=== PATIENT | male | born 1935 | race Caucasian/White ===

== ENCOUNTER 2016-05-12 12:17 | Inpatient (IN) | payer MEDICARE, OTHER ==
[~2016-05-12] VITALS: Ht 175.3 cm; Wt 98.0 kg
[~2016-05-12 12:17] MED LIST changes: -HYDR-3583 PO
--- NOTE | 2016-05-14 17:32 | MH ---
cc: YOLA PUGA M.D., ROHIT K. M.D. VICENTA MONTEJO DATE OF ADMISSION 05/15/2016 ADMISSION DIAGNOSIS Lumbar degenerative disk disease. HISTORY OF PRESENT ILLNESS This is an 80-year-old male who presented to us for evaluation of low back pain that has progressively gotten worse. He states he has had pain radiating into left buttocks, groin, hip and proximal lateral thigh for the last year. He occasionally notices symptoms in the right buttocks and hip area. He was referred to pain management and had an epidural steroid injection the lasted a short term. He denies any paresthesias in his left leg. He states his left leg can buckle. He denies any bowel or bladder incontinence. He has had a previous lumbar laminectomy in 1992 and states he did good after surgery. He has had additional physical therapy more recently and also went back to pain management and had two more injections which did not help as much as his previous injections. He states his pain has affected his walking and he is not able to do things he wants to do. He has tried to go on vacation and was miserable with his level of pain. He states he has pain radiating to the left anterior thigh and into the medial and posterior calf. He has a burning pain in the right anterior thigh. No paresthesias in lower extremities. He denies any bowel or bladder incontinence. PAST MEDICAL HISTORY Significant for: Hypertension. MEDICATIONS 1. Carvedilol 25 mg b.i.d. 2. Lisinopril 30 mg b.i.d. 3. Lortab 7.5/325 q.6 h p.r.n. 4. Aspirin 81 mg daily. ALLERGIES NO KNOWN DRUG ALLERGIES. FAMILY HISTORY His mother is , had cervical cancer. His father is , had Parkinson's disease. SOCIAL HISTORY He is an educator. He is . He has two children. He quit smoking in 1974. At the time he was smoking two packs a day for 20 years. He drinks 0-2 drinks per day. REVIEW OF SYSTEMS CONSTITUTIONAL: He denies any fever or chills. EARS, NOSE, AND THROAT: No pharyngitis, exudate or bloody drainage from his nose. CARDIOVASCULAR: He denies any chest pain, palpitations. RESPIRATORY: No cough or shortness of breath. GENITOURINARY: No dysuria or hematuria. MUSCULOSKELETAL: Positive for low back pain. INTEGUMENT: No rashes or pruritus. NEUROLOGICAL: No difficulty with speech or memory. GASTROINTESTINAL: No nausea, vomiting or abdominal pain. PSYCHIATRIC: No anxiety or depression symptoms. ENDOCRINE; No polyuria or polydipsia. HEMATOLOGIC: No bruising or bleeding tendencies. PHYSICAL EXAMINATION HEAD: Normocephalic, atraumatic. NECK: Supple. No carotid bruits heard on auscultation. LUNGS: Clear to auscultation bilaterally. HEART: Regular rate and rhythm. Normal S1-S2. ABDOMEN: Soft and nontender. Positive bowel sounds. SKIN: Reveals no cyanosis or erythema. MUSCULOSKELETAL: He has 5/5 strength in the lower extremities. He ambulates without any assistive device. NEUROLOGICAL: Awake and alert, oriented. Cranial nerves II through XII appear grossly intact. Speech is fluent. Comprehension is good. Sensation is intact in the lower extremities. His reflexes are very diminished in the lower extremities. IMAGING Reviewed an MRI of the lumbar spine from May 06, 2016 which revealed severe L4-L5 degenerative disc disease with disc height collapse and end plate changes along with left-sided foraminal stenosis and disc protrusion and facet arthropathy in the right hemilaminotomy defect. There is also significant L3-L4 spinal stenosis from facet hypertrophy along with right lateral disc protrusion. IMPRESSION An 80-year-old male with a chronic history of low back pain which has progressively gotten worse along with complaints of left L5 and right L3 radiculopathy. 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 He has failed conservative measures and relates that he is very limited in his activity status with pain, it limits his ability to walk and overall poor quality of life. PLAN We have discussed treatment options with the patient. He has failed conservative measures and he is currently miserable with his level discomfort and he is requesting we proceed with surgical intervention. We have recommended an L3-L4 decompressive laminotomy with foraminotomy and left L4-L5 transforaminal interbody fusion. The procedure as well as the risks, benefits, alternatives and recovery time were explained in great detail with the patient. We have discussed the risks involved with surgery include but not limited to bleeding, infection, muscle weakness, voice hoarseness, difficulty swallowing, heart attack, stroke, blood clots, non fusion, scar tissue formation among others. The patient states that he understands the procedure as well as the risks involved and he was therefore scheduled accordingly. DICTATED BY: Raul Corbin PA-C MD DOMINIK Delgado/GEOVANI /4:53 PM /5:11 PM
[2016-05-15 06:58] VITALS: BP 135/69; PULSE 70; RESP 20; TEMP 98.1; O2SAT 95
[2016-05-15] MEDS ORDERED: VANCOMYCIN 1,000 MG/NS 250ML (for <70 kg) IV SCH ×2 (07:00)
[2016-05-15] MEDS ORDERED: INSULIN HUMAN REGULAR 1,000 UNITS/10 ML VIAL SQ PRN (07:00)
[2016-05-15] MEDS ORDERED: METOPROLOL TARTRATE 25 MG TAB PO PRN (07:00)
[2016-05-15] MEDS: SODIUM CHLOR 0.9% 1000 ML INJ 1,000 ML IV SCH (07:00)
[2016-05-15] MEDS: LACTATED RINGER'S 1000 ML IV SCH (07:15)
[2016-05-15] MEDS ORDERED: THROMBIN (TOPICAL) 5,000 UNIT VIAL ONE (07:32)
[2016-05-15] MEDS ORDERED: VANCOMYCIN HCL 1000 MG VIAL ONE (07:32)
[2016-05-15] MEDS ORDERED: GELFOAM SIZE 100 ONE (07:32)
[2016-05-15] MEDS: SODIUM CHLORID 0.9% 500 ML IV SCH (08:00)
[2016-05-15] MEDS ORDERED: MIDAZOLAM HCL 2 MG/2 ML VIAL ONE (08:13)
[2016-05-15] MEDS ORDERED: DEXAMETHASONE SOD PHOS 4 MG/ML VIAL ONE (08:13)
[2016-05-15] MEDS ORDERED: FAMOTIDINE 20 MG/2 ML VIAL ONE (08:13)
[2016-05-15] MEDS ORDERED: ARTIFICIAL TEARS OPTH OINT 3.5 APPLIC/3.5 GM TUBO ONE (08:16)
[2016-05-15] MEDS: BUPIVACAINE/EPINEPHRINE 0.5% PF 30 ML VIAL ONE ×2 (09:20→12:53)
[2016-05-15] MEDS ORDERED: VANCOMYCIN HCL 1000 MG VIAL OTHER ONE ×2 (09:30→12:54)
[2016-05-15] MEDS ORDERED: ACETAMINOPHEN 1000 MG/100 ML VIAL IV ONE (11:50)
[2016-05-15] MEDS ORDERED: ONDANSETRON HCL 4 MG/2 ML VIAL IV PUSH ONE (12:00)
[2016-05-15] MEDS ORDERED: LACTATED RINGER'S 1000 ML INJ 1,000 ML IV ONE (12:00)
[2016-05-15] MEDS ORDERED: PROPOFOL 200 MG/20 ML AMP IV ONE (12:00)
[2016-05-15] MEDS ORDERED: PHENYLEPH/NS 1000 MCG/10 ML SYR IV ONE (12:00)
[2016-05-15] MEDS ORDERED: NORMOSOL R INJ 2,000 ML IV ONE (12:00)
[2016-05-15] MEDS ORDERED: THROMBIN (TOPICAL) 5,000 UNIT VIAL TOPICAL ONE (12:20)
--- NOTE | 2016-05-15 13:26 | PD.OP ---
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 endotracheal by Renan Riley Surgeon: Adal Méndez M.D. Handstitching Machine Armhole Feller(s): Asiya Leary Operation and Findings: Following initiation of general endotracheal anesthesia, the patient had a Dixon catheter placed along with sequential compression devices. A gram of vancomycin was administered intravenously and he was turned in a prone position on a Flo frame, on a Alfie table, and all pressure points adequately padded. The lumbosacral region was then prepped with Chloraprep and sterilely draped with Ioban along the usual sterile draping. A midline skin incision at the previous incision site was then made extending from the L4-L5 level after infiltrating the skin with 0.5% Marcaine with epinephrine solution extending down through the fascia. The muscle fibers were split using avascular fatty plane and detached from the underlying facets, transverse process and lateral portion of lamina on the left side and a self-retaining retractor used for exposure. Intraoperative fluoroscopy was also used for level of confirmation along with microscope magnification for further dissection. There was significant facet and ligamentum flavum hypertrophy noted at the L3-4 and L4-5 levels. Left L4-5 facet was resected with a drill bit along with the lamina and there was severe foraminal and lateral recess stenosis from hypertrophied ligamentum flavum and facet which were decompressed bilaterally through the usual lateral approach. There was significant L3-4 spinal stenosis noted also and a left L3-4 hemilaminotomy and medial facetectomy also undertaken with resection of the hypertrophied ligamentum flavum bilaterally through the left side gentle thecal sac retraction. There was significant disc height collapse noted at the L4-5 level along with disc protrusion also leading to the foraminal stenosis. Epidural hemostasis was achieved with bipolar cautery and Gelfoam with thrombin. Subsequently entered into the disc space at the L4-5 level with a #15 blade and sara were used for discectomy. I then placed PEEK cage packed with local autograft bone and more local autograft bone was packed adjacent to the cage in interspace for added interbody fusion. With placement of the cage, I was able to distract the interspace and opened up the foramen further bilaterally. Subsequently in order to facilitate the fusion and provide stabilization, pedicle screw fixation was undertaken using Weston spine screws on entry point at the left L4-5 levels at the junction of the transverse process and facet. Subsequently using AP and lateral fluoroscopy tap and screw placement. The screws were then connected with a manisha and locked in place with caps. The construct appeared very secure at this point. The area was then copiously irrigated with Vancomycin solution and powder. The retractors were removed and the bipolar cautery used for hemostasis. The muscle fascia was then approximated using 2-0 Vicryl interrupted stitches and then 3-0 Vicryl subcuticular stitches also placed in interrupted fashion. The final skin closure was completed with Mastisol and Steri-Strips. A sterile dressing was then applied. The patient then turned in supine position, extubated and taken to recovery room. There were no intraoperative complications. All sponge and needle counts were correct at the end of procedure. Estimated blood loss about 200 ml. Adal Méndez MD May 15, 2016 13:26
[2016-05-15] MEDS ORDERED: ACETAMINOPHEN 325 MG TAB PO PRN (13:30)
[2016-05-15] MEDS ORDERED: ALUMINUM/MAGNESIUM/SIMETH 30 ML CUP PO PRN (13:30)
[2016-05-15] MEDS ORDERED: MENTHOL LOZENGE SUCK-ON PRN (13:30)
[2016-05-15] MEDS ORDERED: ZOLPIDEM TARTRATE 5 MG TAB PO PRN (13:30)
[2016-05-15] MEDS ORDERED: CYCLOBENZAPRINE HCL 10 MG TAB PO PRN (13:30)
[2016-05-15] MEDS ORDERED: MAGNESIUM SULFATE INJ 2 GM in SODIUM CHLORIDE 0.9% INJ 100 ML IV PRN (13:30)
[2016-05-15] MEDS ORDERED: SODIUM CHLORIDE 0.9% FLUSH 5 ML FLUSH IVF PRN (13:30)
[2016-05-15] MEDS ORDERED: ACETAMINOPHEN/HYDROcodone 325 MG/10 MG TAB PO PRN (13:30)
[2016-05-15] MEDS ORDERED: RESP: ALBUTEROL 2.5 MG/3 ML NEB (PRN) NEB (13:30)
[2016-05-15] MEDS ORDERED: ONDANSETRON HCL 4 MG/2 ML VIAL IV PRN (13:30)
[2016-05-15] MEDS ORDERED: BISACODYL 10 MG SUPP PR PRN (13:30)
[2016-05-15] MEDS ORDERED: PROMETHAZINE INJ 25 MG/ML VIAL IM PRN (13:30)
[2016-05-15] MEDS ORDERED: POTASSIUM CHLOR 20 MEQ PREMIX 100 ML IV PRN (13:30)
[2016-05-15] MEDS ORDERED: MORPHINE SULFATE 4 MG/ML INJ ONE (13:49)
[2016-05-15] MEDS ORDERED: fentaNYL CITRATE 250 MCG/5 ML AMP ONE (13:50)
[2016-05-15 13:58] LABS: AUTOMATED NEUTROPHIL # 7.5 TH/MM3 (1.8-7.7); BASOPHIL % 0.2 % (0.0-2.0); EOSINOPHIL % 0.2 % (0.0-4.0); HEMATOCRIT 37.5 % (39.0-51.0); HEMO FLAGS DIFF FINAL; LYMPH % 4.7 % (9.0-44.0); LYMPHOCYTE # 0.4 TH/MM3 (1.0-4.8); MEAN CELL VOLUME 90.7 FL (80.0-100.0); MEAN CORPUSCULAR HEMOGLOBIN 32.4 PG (27.0-34.0); MEAN CORPUSCULAR HGB CONC 35.7 % (32.0-36.0); MONO % 1.7 % (0.0-8.0); NEUT % 93.2 % (16.0-70.0); PLATELET COUNT 170 TH/MM3 (150-450); RED BLOOD COUNT 4.14 MIL/MM3 (4.50-5.90); RED CELL DISTRIBUTION WIDTH 15.3 % (11.6-17.2); WHITE BLOOD COUNT 8.1 TH/MM3 (4.0-11.0)
[2016-05-15] MEDS: NS + KCL 20 MEQ INJ 1,000 ML IV SCH ×2 (14:10→23:21)
[2016-05-15 14:26] LABS: BICARBONATE 29.9 MEQ/L (21.0-32.0); MAGNESIUM 2.2 MG/DL (1.5-2.5); POTASSIUM 4.3 MEQ/L (3.5-5.1)
[2016-05-15 14:55] LABS: CALCIUM-PROTEIN CORRECTED 8.4 MG/DL (8.5-10.1)
[2016-05-15] MEDS: CALCIUM GLUCONATE INJ 1 GM in SODIUM CHLORIDE 0.9% INJ 100 ML IV PRN (15:22)
--- NOTE | 2016-05-15 16:09 | RADRPT ---
EXAM DATE/TIME: 05/15/2016 08:36 [facility] COMPARISON: No previous studies available for comparison. INDICATIONS : Lumbar spine L3-5 laminectomy L4-5 interbody cage with pedicle screw fixation. OR. MEDICAL HISTORY : None. SURGICAL HISTORY : None. ENCOUNTER: Initial ACUITY: 1 day PAIN SCORE: Non-responsive. LOCATION: Lumbar L4-5 FINDINGS: 2 images are recorded digitally in the operating room using C-arm during placement of unilateral dave spedicular screws at the 2 lowest levels in the lumbar region. Intervertebral disc metallic markers are also present. CONCLUSION: Intraoperative images. Christopher Andres MD on May 15, 2016 at 16:07 Board Certified Radiologist. This report was verified electronically.
[2016-05-15 17:00] VITALS: BP 173/74; PULSE 67; RESP 17; TEMP 95.4; O2SAT 90
[2016-05-15] MEDS: cloNIDine HCL 0.1 MG TAB PO PRN (17:23)
[2016-05-15 20:00] VITALS: BP 144/90; PULSE 84; RESP 20; TEMP 96.3; O2SAT 94
[2016-05-15] MEDS: CARVEDILOL 12.5 MG TAB PO SCH (21:43)
[2016-05-15] MEDS: DOCUSATE SODIUM 100 MG CAP PO SCH (21:43)
[2016-05-15] MEDS: LISINOPRIL 10 MG TAB PO SCH (21:43)
[2016-05-15] MEDS: SODIUM CHLORIDE 0.9% FLUSH 5 ML FLUSH IVF SCH (21:44)
[2016-05-16] VITALS (8 sets, daily range): BP systolic 138–161; BP diastolic 65–77; PULSE 61–82; RESP 16–20; TEMP 95.8–97; O2SAT 94–98
[2016-05-16] MEDS: SODIUM CHLORID 0.9% 500 ML IV SCH (00:40)
[2016-05-16] MEDS: SODIUM CHLOR 0.9% 1000 ML INJ 1,000 ML IV SCH (07:00)
[2016-05-16] MEDS: LACTATED RINGER'S 1000 ML IV SCH (08:00)
[2016-05-16] MEDS: DOCUSATE SODIUM 100 MG CAP PO SCH ×2 (08:52→21:53)
[2016-05-16] MEDS: CARVEDILOL 12.5 MG TAB PO SCH ×2 (08:52→21:53)
[2016-05-16] MEDS: ASPIRIN EC 81 MG TABEC PO SCH (08:52)
[2016-05-16] MEDS: PANTOPRAZOLE SOD 40 MG DELAYED RELEASE TAB PO SCH (08:52)
[2016-05-16] MEDS: LISINOPRIL 10 MG TAB PO SCH ×2 (08:52→21:54)
[2016-05-16] MEDS: ACETAMINOPHEN/HYDROcodone 325 MG/10 MG TAB PO PRN (08:52)
[2016-05-16] MEDS: NS + KCL 20 MEQ INJ 1,000 ML IV SCH ×2 (08:53→19:21)
[2016-05-16] MEDS: SODIUM CHLORIDE 0.9% FLUSH 5 ML FLUSH IVF SCH ×2 (08:59→21:54)
[2016-05-16] MEDS: CALCIUM GLUCONATE INJ 1 GM in SODIUM CHLORIDE 0.9% INJ 100 ML IV PRN (09:04)
[2016-05-16] MEDS ORDERED: PNEUMOCOCCAL POLYVALENT INJ 25 MCG/0.5 ML SYR IM ONE (10:00)
--- NOTE | 2016-05-16 10:08 | HHI.NSPN ---
(Raul Corbin) History Chief Complaint: Incisional pain controlled. (Raul Corbin) Interval History 05/16/16: Pt underwent a L3-L5 decompressive laminectomy with L4/L5 TLIF with cage and pedicle screw fixation on 05/15/16. He states his pain is currently controlled. No radiculopathy or paresthesias in LEs. He moves LEs well. ( Raul Corbin) Review of Systems General: Negative for: fever, chills, insomnia Respiratory: Negative for: shortness of breath, cough, sputum Cardiovascular: Negative for: chest pain Gastrointestinal: Negative for: nausea, vomitting, diarrhea, constipation ( Raul Corbin) Exam Results Vital Signs Date Time Temp Pulse Resp B/P Pulse Ox O2 Delivery O2 Flow Rate FiO2 05/16/16 08:00 97.0 74 19 157/74 96 05/15/16 15:00 Nasal Cannula 2 Intake and Output 05/15/16 05/15/16 05/16/16 08:00 16:00 00:00 Intake Total 3075 ml 1245 ml Output Total 1200 ml 775 ml Balance 1875 ml 470 ml (Raul Corbin) Physical Examination Resp: CTA bilaterally Heart: NSR no murmurs Abd: Soft positive bs Skin: Bandage changed this morning by RN reportedly clean and dry new bandage applied. Muscle: Moves LEs with good strength. Sitting up in chair Neuro: Pt awake and alert. Follows commands well. Speech clear and appropriate. (Raul Corbin) Lab, Micro, Other Results Laboratory Tests Test 05/15/16 13:53 White Blood Count 8.1 TH/MM3 Red Blood Count 4.14 MIL/MM3 Hemoglobin 13.4 GM/DL Hematocrit 37.5 % Mean Corpuscular Volume 90.7 FL Mean Corpuscular Hemoglobin 32.4 PG Mean Corpuscular Hemoglobin 35.7 % Concent Red Cell Distribution Width 15.3 % Platelet Count 170 TH/MM3 Mean Platelet Volume 7.9 FL Neutrophils (%) (Auto) 93.2 % Lymphocytes (%) (Auto) 4.7 % Monocytes (%) (Auto) 1.7 % Eosinophils (%) (Auto) 0.2 % Basophils (%) (Auto) 0.2 % Neutrophils # (Auto) 7.5 TH/MM3 Lymphocytes # (Auto) 0.4 TH/MM3 Monocytes # (Auto) 0.1 TH/MM3 Eosinophils # (Auto) 0.0 TH/MM3 Basophils # (Auto) 0.0 TH/MM3 CBC Comment DIFF FINAL Differential Comment Sodium Level 137 MEQ/L Potassium Level 4.3 MEQ/L Chloride Level 101 MEQ/L Carbon Dioxide Level 29.9 MEQ/L Anion Gap 6 MEQ/L Blood Urea Nitrogen 17 MG/DL Creatinine 0.90 MG/DL Estimat Glomerular Filtration 81 ML/MIN Rate Random Glucose 157 MG/DL Calcium Level 8.1 MG/DL Protein Corrected Calcium 8.4 MG/DL Magnesium Level 2.2 MG/DL Total Protein 6.7 GM/DL 05/15/16 05/15/16 05/16/16 15:00 23:00 07:00 Intake Total 3075 ml 1245 ml 720 ml Output Total 1200 ml 775 ml 1100 ml Balance 1875 ml 470 ml -380 ml Intake Oral 480 ml 720 ml IV Total 75 ml 765 ml Other 3000 ml Output Urine Total 1000 ml 775 ml 1100 ml Estimated Blood Loss 200 ml # Bowel Movements 0 0 (Raul Corbin) Medical Decision Making Impression and Plan A: 80 y/o M s/p L3-L5 decompressive laminectomy with L4/L5 TLIF and pedicle screw fixation. P: Continue with pain control Continue with PT Possible D/C tomorrow day 2 post op. (Raul Corbin) Attending Statement The exam, history, and the medical decision-making described in the above note were completed with the assistance of the mid-level provider. I reviewed and agree with the findings presented. I attest that I had a [id number] encounter with the patient on the same day, and personally performed and documented my assessment and findings in the medical record. (Adal Méndez MD) Raul Corbin May 16, 2016 10:08 Adal Méndez MD May 16, 2016 15:31
[2016-05-16] MEDS ORDERED: HYDR-3583 PO (10:13)
[2016-05-16] MEDS: MAGNESIUM HYDROXIDE SUSP 30 ML CUP PO PRN (15:24)
[2016-05-17] VITALS: BP 163/76; PULSE 68; RESP 20; TEMP 96.7; O2SAT 95
[2016-05-17] MEDS: NS + KCL 20 MEQ INJ 1,000 ML IV SCH ×2 (05:21→15:21)
[2016-05-17] MEDS: SODIUM CHLOR 0.9% 1000 ML INJ 1,000 ML IV SCH (07:00)
[2016-05-17 08:00] VITALS: BP 162/69; PULSE 68; RESP 17; TEMP 96.7; O2SAT 96
[2016-05-17] MEDS: LACTATED RINGER'S 1000 ML IV SCH (08:00)
[2016-05-17] MEDS: LISINOPRIL 10 MG TAB PO SCH (09:40)
[2016-05-17] MEDS: DOCUSATE SODIUM 100 MG CAP PO SCH (09:40)
[2016-05-17] MEDS: CARVEDILOL 12.5 MG TAB PO SCH (09:40)
[2016-05-17] MEDS: PANTOPRAZOLE SOD 40 MG DELAYED RELEASE TAB PO SCH (09:41)
[2016-05-17] MEDS: SODIUM CHLORIDE 0.9% FLUSH 5 ML FLUSH IVF SCH (09:41)
[2016-05-17] MEDS: ASPIRIN EC 81 MG TABEC PO SCH (09:41)
[2016-05-17] MEDS: MAGNESIUM HYDROXIDE SUSP 30 ML CUP PO PRN (09:45)
--- NOTE | 2016-05-17 11:33 | HHI.DCPOC ---
Discharge Care Plan Diagnosis: (1) Status post lumbar spinal fusion Goals to Promote Your Health * To prevent worsening of your condition and complications * To maintain your health at the optimal level Directions to Meet Your Goals Take your medications as prescribed Follow your dietary instruction Follow activity as directed Keep your appointments as scheduled Take your immunizations and boosters as scheduled If your symptoms worsen call your PCP, if no PCP go to Urgent Care Center or Emergency Room Smoking is Dangerous to Your Health. Avoid second hand smoke Call the 24-hour hour crisis hotline for domestic abuse at Danette Gaines May 17, 2016 11:33
--- NOTE | 2016-05-17 11:39 | HHI.NSPN ---
(Danette Gaines) Note Status Status: Progress Note (Danette Gaines) Interval History Interval History Mr. Calderon is a 80 y/o male who underwent a L3-L5 decompressive laminectomy with L4/L5 TLIF with cage and pedicle screw fixation on 05/15/[address] Méndez. 05/17: He is doing very well today, he reports very minimal pain, he denies focal weakness, paresthesias in his legs. He would like to go home. (Danette Gaines) Labs, Micro, & Vital Signs Results Date Time Temp Pulse Resp B/P Pulse Ox O2 Delivery O2 Flow Rate FiO2 05/17/16 08:00 96.7 68 17 162/69 96 05/17/16 00:00 96.7 68 20 163/76 95 05/16/16 20:00 96.9 74 16 151/77 96 05/16/16 18:26 97 21 05/16/16 16:00 96.3 70 16 161/69 97 05/16/16 12:00 95.8 61 16 138/67 98 05/17/16 07:00 Intake Total 1080 ml Output Total 350 ml Balance 730 ml Constitutional Vital Signs Date Time Temp Pulse Resp B/P Pulse Ox O2 Delivery O2 Flow Rate FiO2 05/17/16 08:00 96.7 68 17 162/69 96 05/17/16 00:00 96.7 68 20 163/76 95 05/16/16 20:00 96.9 74 16 151/77 96 05/16/16 18:26 97 21 05/16/16 16:00 96.3 70 16 161/69 97 05/16/16 12:00 95.8 61 16 138/67 98 05/17/16 07:00 Intake Total 1080 ml Output Total 350 ml Balance 730 ml (Danette Gaines) Review of Systems/Exam Exam Mr. Calderon is alert, speech is appropriate. Wound is clean with dry dressing in place. Cranial nerve examination: pupils equal, round and reactive to light. Extra- ocular movements are intact. Facial motor are normal and symmetrical. Neck: soft, supple Motor: moves 5/5 both iliopsoas, quads, hamstrings, plantarflexion, dorsiflexion , EHL Respiratory: clear, nonlabored (Danette Gaines) Medications Current Medications Current Medications Medications (Trade) Dose Ordered Sig/Leslie Route PRN Reason Start Time Stop Time Status Last Admin Dose Admin Lactated Ringer's 1,000 ml @ 30 mls/hr Q24H IV 05/15/16 08:00 05/15/16 07:15 Sodium Chloride (NS 1000 ml Inj) 1,000 ml @ 30 mls/hr Q24H IV 05/15/16 07:00 Aspirin (Ecotrin Ec) 81 mg DAILY PO 05/16/16 09:00 05/17/16 09:41 Carvedilol (Coreg) 12.5 mg BID PO 05/15/16 21:00 05/17/16 09:40 Lisinopril 30 mg 30 mg BID PO 05/15/16 21:00 05/17/16 09:40 Potassium Chloride/Sodium Chloride (NS + KCl 20 Meq Inj) 1,000 ml @ 100 mls/hr Q10H IV 05/15/16 13:21 05/16/16 08:53 IV Flush (NS Flush) 2 ml UNSCH PRN IVF FLUSH AFTER USING IV ACCESS 05/15/16 13:30 IV Flush (NS Flush) 2 ml BID IVF 05/15/16 21:00 05/17/16 09:41 Bisacodyl (Dulcolax Supp) 10 mg DAILY PRN [place] CONSTIPATION 05/15/16 13:30 Docusate Sodium (Colace) 100 mg BID PO 05/15/16 21:00 05/17/16 09:40 Magnesium Hydroxide (Milk Of Magnesia Liq) 30 ml DAILY PRN PO CONSTIPATION 05/15/16 13:30 05/17/16 09:45 Al Hydrox/Mg Hydrox/Simethicone (Mag-Al Plus Susp Liq) 30 ml Q6H PRN PO DYSPEPSIA 05/15/16 13:30 Pantoprazole Sodium (Protonix) 40 mg DAILY PO 05/16/16 09:00 05/17/16 09:41 Ondansetron HCl (Zofran Inj) 4 mg Q6H PRN IV NAUSEA OR VOMITING 05/15/16 13:30 Promethazine HCl 25 mg 25 mg Q4H PRN IM NAUSEA OR VOMITING 05/15/16 13:30 Calcium Gluconate 1 gm/Sodium Chloride 110 ml @ 110 mls/hr UNSCH PRN IV SEE LABEL COMMENTS 05/15/16 13:30 05/16/16 09:04 Potassium Chloride 100 ml @ 50 mls/hr UNSCH PRN IV POTASSIUM LESS THAN 4 05/15/16 13:30 Magnesium Sulfate/ Sodium Chloride (Magnesium Sulfate Inj/NS Inj) 104 ml @ 100 mls/hr UNSCH PRN IV MAGNESIUM LESS THAN 2 05/15/16 13:30 Acetaminophen/ Hydrocodone Bitart ([place] 10-325 Mg) 1 tab Q4H PRN PO PAIN SCALE 1 TO 5 05/15/16 13:30 05/16/16 08:52 Acetaminophen/ Hydrocodone Bitart ([place] 10-325 Mg) 2 tab Q4H PRN PO PAIN SCALE 6 TO 10 05/15/16 13:30 05/16/16 15:24 Cyclobenzaprine HCl (Flexeril) 10 mg Q8H PRN PO MUSCLE SPASM 05/15/16 13:30 Clonidine (Catapres) 0.1 mg Q6H PRN PO SYS BP GREATER THAN 170 MMHG 05/15/16 13:30 05/15/16 17:23 Acetaminophen (Tylenol) 650 mg Q4H PRN PO TEMPERATURE > 101.5 F 05/15/16 13:30 Menthol ([place]) 1 lozenge UNSCH PRN SUCK-ON SORE THROAT 05/15/16 13:30 Zolpidem Tartrate (Ambien) 5 mg HS PRN PO INSOMNIA 05/15/16 13:30 (Danette Gaines) Medical Decision Making MDM Remarks 80 y/o male s/p L3-L5 decompressive laminectomy with L4/L5 TLIF and pedicle screw fixation, POD 2, doing well, surgical pain controlled (Danette Gaines) Plan Plan Remarks dc home dw to avoid falls f/u Dr. Méndez outpatient (Danette Gaines) Attending Statement The exam, history, and the medical decision-making described in the above note were completed with the assistance of the mid-level provider. I reviewed and agree with the findings presented. I attest that I had a [id number] encounter with the patient on the same day, and personally performed and documented my assessment and findings in the medical record. (Edu Mccann MD) Danette Gaines May 17, 2016 11:39 Edu Mccann MD May 17, 2016 18:58
[2016-05-17] MEDS: cloNIDine HCL 0.1 MG TAB PO PRN (11:41)
[2016-05-17] MEDS: ACETAMINOPHEN/HYDROcodone 325 MG/10 MG TAB PO PRN (11:44)
[2016-05-17 12:00] VITALS: BP 179/80; PULSE 73; RESP 21; TEMP 97.7; O2SAT 95
[2016-05-17] MEDS ORDERED: BISACODYL 10 MG SUPP RECTAL ONE (14:30)
[2016-05-17 14:48] VITALS: BP 113/59
[2016-05-17] MEDS ORDERED: SOD PHOSPHATE/SOD BIPHOSPHATE (ADULT) ENEMA 133ML PR ONE (17:30)
[2016-05-17] MEDS ORDERED: MAGNESIUM CITRATE SOLN 300 ML BTL PO PRN (17:45)
[2016-06-26] MEDS ORDERED: HYDR-3583 PO (14:56)
== END 2016-05-17 17:44 | disposition home or self-care (01) | DRG 460 ==
LOC: HSDI 05-15 05:59 → N06B 05-15 16:04
PROVIDERS: ADMIT Neurological Surgery; ATTEND Neurological Surgery
PROC: 0SB20ZZ Excision of Lumbar Vertebral Disc, Open Approach (ICD-10-PCS; 2016-05-15)
PROC: 0SG00AJ Fusion of Lumbar Vertebral Joint with Interbody Fusion Device, Posterior Approach, Anterior Column, Open Approach (ICD-10-PCS; principal; 2016-05-15 08:20)
DX: M51.16 Intervertebral disc disorders with radiculopathy, lumbar region (principal); I10 Essential (primary) hypertension; M51.26 Other intervertebral disc displacement, lumbar region; M48.06 Spinal stenosis, lumbar region; K21.9 Gastro-esophageal reflux disease without esophagitis; E66.9 Obesity, unspecified; Z68.31 Body mass index [BMI] 31.0-31.9, adult; Z87.891 Personal history of nicotine dependence; M96.1 Postlaminectomy syndrome, not elsewhere classified; R94.31 Abnormal electrocardiogram [ECG] [EKG]
CPT/HCPCS: 71020; 72100; 76000; 80048; 80053; 81001; 83735; 84155; 85025; 85610; 85730; 86850; 86900; 86901; 86920; 90471; 90732; 93005; 94150; C1713; G0009; J0131; J0610; J0690; J1100; J2250; J2270; J2370; J2405; J3010; J3370; J3480; J7120

== ENCOUNTER → 2016-05-12 | Outpatient (CLI) | payer MEDICARE, OTHER ==
[~2016-05-12] MED LIST: ASPI1TAB69 PO; CARV12.52 PO; HYDR-3580 PO; HYDR-3583 PO; LISI30TA4 PO
[2016-05-12 12:49] LABS: BASOPHIL % 0.7 % (0.0-2.0); EOSINOPHIL # 0.2 TH/MM3 (0-0.4); EOSINOPHIL % 3.8 % (0.0-4.0); HEMATOCRIT 40.5 % (39.0-51.0); HEMO FLAGS DIFF FINAL; LYMPH % 17.1 % (9.0-44.0); LYMPHOCYTE # 0.8 TH/MM3 (1.0-4.8); MEAN CELL VOLUME 90.7 FL (80.0-100.0); MEAN CORPUSCULAR HEMOGLOBIN 31.3 PG (27.0-34.0); MEAN CORPUSCULAR HGB CONC 34.5 % (32.0-36.0); MONO % 12.3 % (0.0-8.0); NEUT % 66.1 % (16.0-70.0); PLATELET COUNT 178 TH/MM3 (150-450); RED BLOOD COUNT 4.46 MIL/MM3 (4.50-5.90); RED CELL DISTRIBUTION WIDTH 15.3 % (11.6-17.2); WHITE BLOOD COUNT 4.5 TH/MM3 (4.0-11.0)
[2016-05-12 12:57] LABS: APTT (PATIENT) 26.4 SEC (24.3-30.1); PROTHROMBIN TIME - PATIENT 11.4 SEC (9.8-11.6)
[2016-05-12 13:05] LABS: BLOOD, URINE NEG (NEG); COMMENT (UR) CULT NOT INDICATED; CULTURE IF INDICATED CULT NOT INDICATED; GLUCOSE,URINE NEG (NEG); KETONE, URINE NEG (NEG); MUCUS URINE FEW /lpf (OCC); NITRITE,URINE NEG (NEG); PH, URINE 6.5 (5.0-8.5); URINE COLOR YELLOW (YELLW/STRAW)
[2016-05-12 13:18] LABS: ALKALINE PHOSPHATASE 108 U/L (45-117); ALT (GPT) 24 U/L (12-78); ANION GAP 7 MEQ/L (5-15); AST (GOT) 10 U/L (15-37); BICARBONATE 30.1 MEQ/L (21.0-32.0); BLOOD UREA NITROGEN 16 MG/DL (7-18); CHLORIDE 103 MEQ/L (98-107); GLOMERULAR FILTRATION RATE 82 ML/MIN (>89); GLUCOSE,FASTING 94 MG/DL (74-99); POTASSIUM 4.4 MEQ/L (3.5-5.1); SODIUM (NA) 140 MEQ/L (136-145); TOTAL BILIRUBIN ADULT 0.6 MG/DL (0.2-1.0)
--- NOTE | 2016-05-12 14:14 | RADRPT ---
EXAM DATE/TIME: 05/12/2016 13:09 [facility] COMPARISON: No previous studies available for comparison. INDICATIONS : Evaluation for pneumonia, pneumothorax, or communicable diseases. MEDICAL HISTORY : Hypertension. SURGICAL HISTORY : None. ENCOUNTER: Initial ACUITY: 1 day PAIN SCORE: 0/10 LOCATION: Bilateral chest FINDINGS: Minimal scarring or atelectasis at the right lung base. No evidence of effusion. Cardiomediastinal co ntours are satisfactory. There is degenerative change of the thoracic spine. CONCLUSION: Minimal parenchymal opacity right lung base. Brandon Cardozo MD on May 12, 2016 at 14:03 Board Certified Radiologist. This report was verified electronically.
--- NOTE | 2016-05-13 21:06 | EKG ---
Date Performed: 05/12/2016 Time Performed: 12:47:18 PTAGE: 80 years EKG: Sinus rhythm MARKED LEFT AXIS DEVIATION POOR R-WAVE PROGRESSION ABNORMAL ECG PREVIOUS TRACING 06/22/1992 @17.11.33 DOCTOR: Aamir Benitez Interpretating Date/Time 05/13/2016 21:04:33
== END ==
LOC: CPRE 12:14
PROVIDERS: ATTEND Neurological Surgery
DX: Z01.810 Encounter for preprocedural cardiovascular examination (principal); Z01.811 Encounter for preprocedural respiratory examination; Z01.812 Encounter for preprocedural laboratory examination; Z79.01 Long term (current) use of anticoagulants; Z01.818 Encounter for other preprocedural examination; M51.36 Other intervertebral disc degeneration, lumbar region; M48.06 Spinal stenosis, lumbar region; M96.1 Postlaminectomy syndrome, not elsewhere classified; R94.31 Abnormal electrocardiogram [ECG] [EKG]
CPT/HCPCS: 71020; 80053; 81001; 85025; 85610; 85730; 93005

== ENCOUNTER 2016-09-11 11:20 | Inpatient (IN) | payer MEDICARE, OTHER ==
[~2016-09-11] VITALS: Ht 175.3 cm; Wt 107.9 kg
[~2016-09-11 11:20] MED LIST changes: -HYDR-3580 PO; +HYDR-3583 PO
[2016-09-26] MEDS ORDERED: ASPI81TA81 PO ×2 (11:45)
[2016-09-26] MEDS ORDERED: DICL75TA PO ×2 (11:46)
[2016-09-26] MEDS ORDERED: OMEP20TA PO ×2 (11:51)
[2016-09-26] MEDS ORDERED: IRON27TA PO ×2 (11:54)
--- NOTE | 2016-10-06 11:09 | MH ---
cc: JOSEMANUEL THOMAS M.D. DATE OF ADMISSION: 10/07/2016 ADMITTING DIAGNOSIS Osteoarthritis, left hip. HISTORY OF PRESENT ILLNESS This patient is an 80-year-old male who has had a two-year history of low back pain, left hip and groin pain. He has been under the care of another surgeon. The patient underwent lumbar spine surgery which helped with his low back pain. The patient continues to have left hip pain. The patient had medical treatment including medications, use of a cane, altered activities and physical therapy. The patient is failing conservative care and continues to be painful and symptomatic. He presents now for surgical treatment. PAST MEDICAL HISTORY, SOCIAL HISTORY, FAMILY HISTORY See attached notes. PHYSICAL EXAMINATION VITAL SIGNS: 5 feet 7 inches, 231 pounds, BMI 35.7. Blood pressure 142/76. HEENT: Normocephalic, atraumatic. Pupils equal, round and reactive to light and accommodation. Extraocular motion intact. NECK: Supple. CHEST: Clear. HEART: Regular rate and rhythm. ABDOMEN: Soft, nontender. Normoactive bowel sounds. MUSCULOSKELETAL: The left hip has severe pain with range of motion, especially with internal and external rotation. Groin pain is seen. There is an external rotation contracture. Internal rotation is -10, external rotation 30. Neurologic and vascular examinations within normal limits. IMPRESSION Osteoarthritis of the left hip, severe. PLAN Left total hip replacement arthroplasty, direct anterior exposure. CONSENT There are risks of surgery including infection, bleeding, loss of motion, continued pain, need for further surgery, neurologic and vascular injury. The patient understands these risks and wishes to press on with surgery as outlined above. Josemanuel Thomas MD [facility] [place]/ELIAS /10:51 AM /11:08 AM
--- NOTE | 2016-10-07 07:25 | MH ---
cc: JOSEMANUEL THOMAS M.D. DATE OF ADMISSION: 10/07/2016 ADMISSION DIAGNOSIS Left hip osteoarthritis. HISTORY This is an 80-year-old male with significant left hip pain. Investigative studies showed evidence of extensive arthritis left hip. Despite conservative care the patient is painful and symptomatic. He presents for surgical treatment. PAST MEDICAL HISTORY, SOCIAL HISTORY, FAMILY HISTORY, REVIEW OF SYSTEMS See attached notes. PHYSICAL EXAMINATION GENERAL: An 80-year-old male in moderate distress with his left hip. HEENT: Normocephalic, atraumatic. Pupils equal, round, reactive to light and accommodation. Extraocular motions intact. NECK: Supple. CHEST: Clear. HEART: Regular rate and rhythm. ABDOMEN: Soft, nontender with normoactive bowel sounds. MUSCULOSKELETAL EXAMINATION: Left hip pain with range of motion. A mild flexion contracture. Pain especially with internal and external rotation. IMPRESSION Osteoarthritis left hip. PLAN Left total hip replacement arthroplasty, direct anterior exposure. CONSENT There are risks with surgery including infection, bleeding, loss of motion, continued pain, need for further surgery, neurologic and vascular injury. The patient understands these issues and wishes to press on with surgery as outlined above. MD RAUL Mueller/AGUSTIN /11:32 PM /7:26 AM
[2016-10-07] MEDS ORDERED: INSULIN HUMAN REGULAR 1,000 UNITS/10 ML VIAL SQ PRN (09:15)
[2016-10-07] MEDS ORDERED: POVIDONE IODINE 7.5% SCRUB 118 ML BOTTLE TOPICAL SCH (09:15)
[2016-10-07] MEDS ORDERED: VANCOMYCIN 1000 MG/NS 250 ML (for <70 kg) IV SCH ×2 (09:15)
[2016-10-07] MEDS ORDERED: CHLORHEXIDINE GLUCONATE 2 % 1 PACK (2 CLOTHS) TOPICAL PRN (09:15)
[2016-10-07] MEDS ORDERED: LACTATED RINGER'S 1000 ML IV PRN (09:15)
[2016-10-07] MEDS ORDERED: POVIDONE IODINE 5% (ANTISEPSIS KIT) 4 APPLICATIONS EACH NARE PRN (09:15)
[2016-10-07] MEDS ORDERED: METOPROLOL TARTRATE 25 MG TAB PO PRN (09:15)
[2016-10-07] MEDS ORDERED: ceFAZolin 2 GM PREMIX 50 ML IV SCH (09:15)
[2016-10-07] MEDS ORDERED: SODIUM CHLORID 0.9% 500 ML IV PRN (09:15)
[2016-10-07 09:23] VITALS: BP 156/82; PULSE 68; RESP 18; TEMP 97.8; O2SAT 97
[2016-10-07] MEDS ORDERED: EXPAREL PERI-ARTICULAR INJECTION (TOTAL VOL. 60 ML) P-ARTICULR SCH ×2 (10:00)
[2016-10-07] MEDS ORDERED: TRANEXAMIC ACID IV SCH (10:00)
[2016-10-07] MEDS ORDERED: SODIUM CHLORIDE 0.9% IV SCH (10:00)
[2016-10-07] MEDS ORDERED: GENTAMICIN SULFATE 80 MG/2 ML VIAL ONE (10:13)
[2016-10-07] MEDS ORDERED: SUGAMMADEX SODIUM 200 MG/2 ML VIAL IV PUSH ONE ×2 (10:20)
[2016-10-07] MEDS ORDERED: ACETAMINOPHEN 1000 MG/100 ML VIAL IV ONE (10:21)
[2016-10-07] MEDS ORDERED: FAMOTIDINE 20 MG/2 ML VIAL ONE (11:02)
[2016-10-07] MEDS: LACTATED RINGER'S 1000 ML INJ 1,000 ML IV SCH (13:47)
--- NOTE | 2016-10-07 13:50 | PD.OP ---
cc: Conor Cortez MD Operative Report Date of Surgery: Oct 07, 2016 Preoperative Diagnosis: Osteoarthritis left hip, severe Postoperative Diagnosis: Same Procedure: Left total hip replacement arthroplasty, direct anterior exposure Anesthesia: Gen. Surgeon: Conor Cortez Practice Performance Manager(s): GERRI Vasquez Operation and Findings: EBL: 350 cc cc INDICATION: This patient presents with significant hip pain related to severe osteoarthritis of the left hip. Despite extensive conservative care this patient continues to be painful and now presents for surgical treatment. NOTE: Slippaige Vasquez PA-C was present for the entire surgical procedure as my tmd teacher assistant. In my medical opinion her skill and care was necessary for the proper management of this patient. COMPONENTS: COMPANY: [employer] CUP: Usk, 56 mm, 100 series, gription surface LINER: Altrx 36, neutral STEM: Corail, size 13, high offset, hydroxyapatite-coated HEAD: 36 mm, metal, +1.5, 03/05 taper PROCEDURE: This patient was brought to the operating room and anesthetized in the supine position and positioned on the fracture table with both legs held extended. The left hip and leg was scrubbed with alcohol followed by Hibiclens followed by ChloraPrep and draped sterilely. Antibiotics were given within routine time window and a timeout was done. A 4 inch incision was made starting 2 cm distal and 2 cm lateral to the anterior superior iliac spine. The fascia hope was opened longitudinally. The interval between the fascia hope and the rectus was opened down to the capsule of the hip joint. Retractors were positioned allowing good visualization of the capsule. This was opened longitudinally and flaps were created. Stay sutures were utilized. Exposure was excellent. The neck was cut at the proper location using fluoroscopy as a guide. The head was removed. Deep retractors were positioned allowing good visualization of the acetabulum. Acetabulum was deepened down to the floor starting with a proper size reamer and reaming up to 55 mm. A trial was utilized. Fluoroscopy was used to check position and confirmed satisfactory alignment. The rim was reamed with a 56 mm reamer and the final cup was positioned in approximately 20 of anteversion and 40-45 of abduction. Position was satisfactory. A single hole eliminator was positioned followed by the final liner. The lifting hook was utilized. The leg was dropped to the floor, maximally externally rotated and brought across the midline. Retractors were positioned. A box osteotome was utilized followed by progressive broaching to the proper stem size. Trial reduction showed excellent alignment and fit. With 60 of external rotation the leg was dropped to the floor without evidence of anterior subluxation. The wound was irrigated. The final stem was inserted and was found to be very stable. The final reduction using the final head. Stability was as previously noted. Intraoperative x-rays were taken. The wound was irrigated copiously. Hemostasis was controlled. Local anesthesia was utilized. The capsule was repaired with #2 Tycron sutures. The fascia hope was repaired with running 0 PDS on a loop. Subcutaneous tissue was approximated with 2-0 Vicryl and skin with running intradermal 3-0 Vicryl followed by Steri-Strips. A sterile dressing was applied. The patient was awakened and taken to the recovery room in satisfactory condition. FINDINGS: There was severe osteoarthritis of the left hip. The final solution was excellent. Stability was excellent. There was no comp case and that was appreciated. Conor Cortez MD Oct 07, 2016 13:50
[2016-10-07] MEDS ORDERED: OXYC1TAB63 PO (13:52)
[2016-10-07] MEDS ORDERED: XARE10TA PO (13:52)
[2016-10-07] MEDS ORDERED: MISCELLANEOUS PHARMACY INFORMATION XX ONE (14:00)
[2016-10-07] MEDS ORDERED: NALOXONE HCL 0.4 MG/ML AMP IV PRN (14:00)
[2016-10-07] MEDS ORDERED: MORPHINE SULFATE 30 MG/30 ML PCA IV SCH (14:00)
[2016-10-07] MEDS ORDERED: Post-op Orders (for Pharmacy) MISC XX ONE (14:00)
[2016-10-07] MEDS ORDERED: SODIUM CHLORIDE 0.9% FLUSH 5 ML FLUSH IVF PRN (14:00)
[2016-10-07] MEDS ORDERED: MISCELLANEOUS NURSING INFORMATION XX PRN (14:00)
--- NOTE | 2016-10-07 14:14 | RADRPT ---
EXAM DATE/TIME: 10/07/2016 12:42 [place] COMPARISON: No previous studies available for comparison. INDICATIONS : Left total hip replacment. MEDICAL HISTORY : Unobtainable. SURGICAL HISTORY : Unobtainable. ENCOUNTER: Initial ACUITY: 1 day PAIN SCORE: Non-responsive. LOCATION: Left hip FINDINGS: 3 intraoperative view shows total hip arthroplasty with excellent alignment and no evidence of fract ure. CONCLUSION: Unremarkable intraoperative examination of the left hip status post left total hip arthroplasty. Kory Valadez MD on October 07, 2016 at 14:12 Board Certified Radiologist. This report was verified electronically.
[2016-10-07] MEDS ORDERED: DO NOT ADM ANY ANTICOAGULANT DRUGS PRN (14:26)
[2016-10-07] MEDS ORDERED: *morphine SULFATE 8 MG/ML PERIprocedure ONLY ONE (14:32)
[2016-10-07] MEDS ORDERED: MORPHINE SULFATE 4 MG/ML INJ ONE (14:36)
[2016-10-07] MEDS ORDERED: fentaNYL CITRATE 250 MCG/5 ML AMP ONE (14:36)
[2016-10-07] MEDS ORDERED: ePHEDrine/NS 25 MG/5 ML SYR IV ONE (15:25)
[2016-10-07] MEDS ORDERED: PROPOFOL 200 MG/20 ML AMP IV ONE (15:25)
[2016-10-07] MEDS ORDERED: ONDANSETRON HCL 4 MG/2 ML VIAL IV PUSH ONE (15:25)
[2016-10-07] MEDS ORDERED: LACTATED RINGER'S 1000 ML INJ 1,000 ML IV ONE (15:25)
[2016-10-07] MEDS ORDERED: MORPHINE SULFATE 8 MG/ML INJ IM PRN (16:00)
[2016-10-07] MEDS ORDERED: *LABETALOL HCL 100 MG/20 ML VIAL PERIprocedural Use ONLY ONE (18:50)
[2016-10-07 19:50] VITALS: BP 178/81; PULSE 63; RESP 18; TEMP 96.2; O2SAT 98
[2016-10-07] MEDS: SODIUM CHLORIDE 0.9% FLUSH 5 ML FLUSH IVF SCH (21:00)
[2016-10-07] MEDS: LISINOPRIL 10 MG TAB PO SCH (21:01)
[2016-10-07] MEDS: SENNOSIDES 8.6 MG TAB PO SCH (21:01)
[2016-10-07] MEDS: CARVEDILOL 12.5 MG TAB PO SCH (21:01)
[2016-10-07] MEDS: MAGNESIUM HYDROXIDE SUSP 30 ML CUP PO SCH (21:01)
[2016-10-07] MEDS: PCA - TOTAL MG MORPHINE DELIVERED PER SHIFT SCH (21:02)
[2016-10-08] VITALS (7 sets, daily range): BP systolic 116–173; BP diastolic 56–76; PULSE 74–95; RESP 17–18; TEMP 96.9–99.8; O2SAT 92–99
[2016-10-08] MEDS: LACTATED RINGER'S 1000 ML INJ 1,000 ML IV SCH ×3 (02:17→21:19)
[2016-10-08] MEDS: PCA - TOTAL MG MORPHINE DELIVERED PER SHIFT SCH (05:48)
[2016-10-08 06:46] LABS: HEMATOCRIT 34.1 % (39.0-51.0); REVIEW FLAG FINAL
[2016-10-08] MEDS ORDERED: COMMODE 3-IN-11 MIS (08:11)
[2016-10-08] MEDS ORDERED: WALKER WHEELS/F1 MIS (08:12)
--- NOTE | 2016-10-08 08:14 | HHI.FF ---
Face to Face Verification Diagnosis: (1) Osteoarthritis of left hip (2) Left hip pain Physical Therapy Gait training, Safety evaluation, Transfer training, bed to chair Hip: Total hip, Protocol: Left, Progress to weight bearing Left LE Weight Bearing: WB as tolerated Additional Instructions PT 4 days/wk for 2 weeks. WBAT LLE. Anterior LASHAUN precautions. Gait training. Nursing RN Days per Week: 2 x Week(s): 1 Dressing Changes: Do not change dressing Additional Instructions Hold dressing changes unless saturated. Vitals assessment. I have seen patient Ricardo Calderon on 10/08/16. My clinical findings support the need for the requested home health care services because: Limited ability to care for self High risk of falls I certify that my clinical findings support that this patient is homebound because: Post-op weakness Unsteady gait/balance Felipa Live Oct 08, 2016 08:14
[2016-10-08] MEDS: PANTOPRAZOLE SOD 20 MG DELAYED RELEASE TAB PO SCH (08:58)
[2016-10-08] MEDS: MAGNESIUM HYDROXIDE SUSP 30 ML CUP PO SCH ×2 (08:58→21:11)
[2016-10-08] MEDS: CARVEDILOL 12.5 MG TAB PO SCH ×2 (08:59→21:10)
[2016-10-08] MEDS: LISINOPRIL 10 MG TAB PO SCH ×2 (08:59→21:10)
[2016-10-08] MEDS: SODIUM CHLORIDE 0.9% FLUSH 5 ML FLUSH IVF SCH ×2 (09:00→21:14)
--- NOTE | 2016-10-08 12:51 | HHI.DCPOC ---
Discharge Care Plan Diagnosis: (1) Left hip pain (2) Osteoarthritis of left hip Your Health Problems Are: Incision/Drains Inflammation Goals to Promote Your Health * To prevent worsening of your condition and complications * To maintain your health at the optimal level Directions to Meet Your Goals Take your medications as prescribed Follow your dietary instruction Follow activity as directed Keep your appointments as scheduled Take your immunizations and boosters as scheduled If your symptoms worsen call your PCP, if no PCP go to Urgent Care Center or Emergency Room Smoking is Dangerous to Your Health. Avoid second hand smoke Call the 24-hour hour crisis hotline for domestic abuse at Felipa Live Oct 08, 2016 12:51
--- NOTE | 2016-10-08 12:53 | PD.ORT.PN ---
Subjective Subjective Remarks Moderate left hip aching but states 'he's doing fine'. No new radiating leg pain. Was able to get some sleep last night. He had no concerns otherwise. He prefers d/c [facility]. No new CP or SOB. Objective Vitals Vital Signs Date Time Temp Pulse Resp B/P Pulse Ox O2 Delivery O2 Flow Rate FiO2 10/08/16 11:35 96.9 78 18 136/64 93 10/08/16 09:52 98 Nasal Cannula 2.00 10/08/16 07:02 97.8 83 18 151/73 99 10/08/16 06:25 Nasal Cannula 2.00 10/08/16 04:05 98.2 81 17 146/68 98 10/08/16 00:05 97.0 74 18 173/76 98 10/07/16 19:50 96.2 63 18 178/81 98 10/07/16 19:37 Nasal Cannula 2.00 10/07/16 18:45 65 11 177/84 99 Nasal Cannula 2 10/07/16 18:21 63 12 154/70 96 Nasal Cannula 2 10/07/16 17:30 62 11 142/69 95 Nasal Cannula 2 10/07/16 16:30 64 11 135/69 93 Nasal Cannula 2 10/07/16 15:30 67 8 168/74 98 Nasal Cannula 2 10/07/16 15:00 69 17 162/78 97 Nasal Cannula 2 10/07/16 14:45 71 16 156/77 96 Nasal Cannula 2 10/07/16 14:30 70 9 161/72 91 Nasal Cannula 2 10/07/16 14:28 98.3 70 16 159/70 95 Nasal Cannula 2 I/O 10/07/16 10/07/16 10/07/16 10/08/16 10/08/16 10/08/16 06:59 14:59 22:59 06:59 14:59 22:59 Intake Total 1700 ml 240 ml 240 ml Output Total 850 ml 300 ml 550 ml Balance 850 ml -60 ml -310 ml Intake Oral 240 ml 240 ml Other 1700 ml Output Urine Total 300 ml 550 ml Estimated Blood Loss 400 ml Other 450 ml Result Diagram: 10/08/16 0539 Objective Remarks Sitting up in bed at bedside NAD VSS LLE Dressing c/d/i, moderate swelling, minimal ecchymosis, no erythema thigh and calf both supple, neg homans +motor at, +sens, +nvi Assessment & Plan Ortho Post Op Day #: 1 Problem List: Assessment and Plan pod#1 s/p L LASHAUN, anterior D/C delivery helper - change to po pain meds. Hold dressing changes unless saturated. PT - WBAT LLE. Anterior lashaun precautions. Xarelto 10mg qd. IS encouraged. Ice left hip and thigh. D/C planning, likely [facility] tomorrow. Felipa Live Oct 08, 2016 12:53
[2016-10-08] MEDS: RIVAROXABAN 10 MG TAB PO SCH (16:16)
[2016-10-08] MEDS: oxyCODONE/ACETAMINOPHEN 5 MG/325 MG TAB PO PRN ×2 (17:40→21:14)
[2016-10-08] MEDS: SENNOSIDES 8.6 MG TAB PO SCH (21:10)
[2016-10-09 00:05] VITALS: BP 117/57; PULSE 80; RESP 18; TEMP 97.4; O2SAT 94
[2016-10-09 07:38] VITALS: BP 144/69; PULSE 77; RESP 18; TEMP 96.4; O2SAT 94
[2016-10-09] MEDS ORDERED: TAMSULOSIN HCL 0.4 MG CAP PO ONE (08:15)
--- NOTE | 2016-10-09 08:31 | HHI.DS ---
Discharge Summary Admission Date Oct 07, 2016 at 08:28 Discharge Date: Oct 09, 2016 Admitting Diagnosis see below Diagnosis: (1) Left hip pain Diagnosis: Principal (2) Osteoarthritis of left hip Diagnosis: Principal Procedures Left total hip arthroplasty, direct anterior approach Brief History This is a 80 year old male patient CBC/BMP: 10/08/16 0539 Significant Findings Laboratory Tests Test 10/08/16 05:39 Hemoglobin 11.8 GM/DL (13.0-17.0) Hematocrit 34.1 % (39.0-51.0) PE at Discharge Sitting up in bed at bedside NAD VSS LLE Dressing c/d/i, moderate swelling, minimal ecchymosis, no erythema thigh and calf both supple, neg homans +motor at, +sens, +nvi Hospital Course Surgical treatment was performed on the day of admission without complication. He recovered well in pacu and was transferred to the orthopaedic floor. Pain was controlled with IV and oral medications. DVT prophylaxis was initiated pod# 1 with xarelto. He was compliant with physical therapy and all restrictions but struggled with urinary retention pod#1. A ward cath was placed. Day #2 it was removed and he was given a dose of flomax.... After 3 days he was found to be stable and discharged to [facility] with his ward catheter. He was instructed to continue the catheter for 5-7 days and to follow up with urology outpatient. He was also instructed to continue PT, continue his xarelto for 25 days and to pursue a high fiber diet for 3-5 days. Discharge Disposition: Discharge to SNF Discharge Instructions Diet Instructions: As Tolerated, No Restrictions, High Fiber Diet Activities You Can Perform: Weight Bearing as Kevin Activities to Avoid: Strenuous Activity Additional Activity Instruc.: Anterior juan precautions New Medications: Commode 3-in-1 (Commode 3-in-1) 1 Mis Mis 1 EA .ROUTE DIRECTED #1 Ref 0 EA Walker with Front Wheels (Walker with Front Wheels) 1 Mis Mis 1 EA .ROUTE DIRECTED #1 Ref 0 EA Oxycodone-Acetaminophen (Oxycodone-Acetaminophen) 5-325 mg Tab 1 TAB PO Q4H PRN PAIN LESS THAN 5 ON SCALE #50 TAB Rivaroxaban (Xarelto) 10 Mg Tab 10 MG PO Q24H Prevent Blood Clot #25 TAB Continued Medications: Aspirin (Aspir-81) 81 Mg Tabdr 1 TAB PO DAILY Carvedilol (Carvedilol) 12.5 Mg Tab 12.5 MG PO BID Blood Pressure Management #60 Ref 0 TAB Ferrous Gluconate (Iron) 27 Mg Tab 65 MG PO DAILY Hydrocodone-Acetaminophen (Hydrocodone-Acetaminophen) 10-325 mg Tab 1 TAB PO Q6HR PRN pain #60 TAB Lisinopril (Lisinopril) 30 Mg Tab 30 MG PO BID Blood Pressure Management #30 Ref 0 TAB Omeprazole (Omeprazole) 20 Mg Tab 20 MG PO DAILY #30 Ref 0 TAB Discontinued Medications: Diclofenac Sodium DR (Diclofenac Sodium DR) 75 Mg Tabdr 75 MG PO BID #60 Ref 0 TAB Felipa Live Oct 09, 2016 08:31
[2016-10-09] MEDS: CARVEDILOL 12.5 MG TAB PO SCH ×2 (08:33→21:38)
[2016-10-09] MEDS: MAGNESIUM HYDROXIDE SUSP 30 ML CUP PO SCH ×2 (08:33→21:00)
[2016-10-09] MEDS: PANTOPRAZOLE SOD 20 MG DELAYED RELEASE TAB PO SCH (08:33)
[2016-10-09] MEDS: LISINOPRIL 10 MG TAB PO SCH ×2 (08:33→21:37)
[2016-10-09] MEDS: SODIUM CHLORIDE 0.9% FLUSH 5 ML FLUSH IVF SCH ×2 (08:34→21:00)
--- NOTE | 2016-10-09 08:37 | PD.ORT.PN ---
Subjective Subjective Remarks Moderate left hip aching but doing better today. Less pain with sitting in the chair. No new radiating leg pain. Difficulty urinating yesterday so ward was placed last night. He is trying to drink more water today. He had no concerns otherwise. Though he was considering home discharge he now wants to discuss SNF. No new CP or SOB. Objective Vitals Vital Signs Date Time Temp Pulse Resp B/P Pulse Ox O2 Delivery O2 Flow Rate FiO2 10/09/16 07:38 96.4 77 18 144/69 94 10/09/16 07:28 Room Air 10/09/16 00:05 97.4 80 18 117/57 94 10/08/16 21:45 21 10/08/16 20:05 99.8 89 18 134/62 94 10/08/16 15:50 98.9 95 18 116/56 92 10/08/16 11:35 96.9 78 18 136/64 93 10/08/16 09:52 98 Nasal Cannula 2.00 I/O 10/08/16 10/08/16 10/08/16 10/09/16 10/09/16 10/09/16 06:59 14:59 22:59 06:59 14:59 22:59 Intake Total 240 ml 720 ml 240 ml 240 ml Output Total 550 ml 150 ml 300 ml Balance -310 ml 720 ml 90 ml -60 ml Intake Oral 240 ml 720 ml 240 ml 240 ml Output Urine Total 550 ml 150 ml 300 ml # Voids 0 # Bowel Movements 0 0 0 Result Diagram: 10/08/16 0539 Procedures Left total hip arthroplasty, direct anterior approach Objective Remarks Sitting up in chair, NAD VSS LLE Dressing c/d/i, no new drainage, moderate swelling, minimal ecchymosis, no erythema thigh and calf both supple, neg homans +motor at, +sens, +nvi Assessment & Plan Ortho Post Op Day #: 2 Problem List: (1) Left hip pain (2) Osteoarthritis of left hip Assessment and Plan pod#2 s/p L LASHAUN, anterior We will attempt to d/c ward today. Flomax 0.4mg today. PO pain meds. Hold dressing changes unless saturated. PT - WBAT LLE. Anterior lashaun precautions. Xarelto 10mg qd. IS encouraged. Ice left hip and thigh. If he is able to urinate ok to d/c today. If not, will place ward again but retain for 5-7 days, continue flomax daily and have follow up w urology. Will have CM talk to pt today about SNF - he is considering based on concern over burdening his . Felipa Live Oct 09, 2016 08:37
[2016-10-09] MEDS: oxyCODONE/ACETAMINOPHEN 5 MG/325 MG TAB PO PRN (10:20)
[2016-10-09 11:55] VITALS: BP 92/52; PULSE 69; RESP 18; TEMP 95.5; O2SAT 93
[2016-10-09] MEDS: RIVAROXABAN 10 MG TAB PO SCH (14:00)
[2016-10-09 15:30] VITALS: BP 125/59; PULSE 71; RESP 18; TEMP 96.7; O2SAT 98
[2016-10-09] MEDS: LACTATED RINGER'S 1000 ML INJ 1,000 ML IV SCH (15:47)
[2016-10-09 20:05] VITALS: BP 126/60; PULSE 75; RESP 18; TEMP 97; O2SAT 98
[2016-10-09] MEDS: SENNOSIDES 8.6 MG TAB PO SCH (21:36)
[2016-10-10 00:05] VITALS: BP 159/72; PULSE 75; RESP 18; TEMP 96.9; O2SAT 97
[2016-10-10 07:30] VITALS: BP 145/68; PULSE 80; RESP 18; TEMP 98.7; O2SAT 93
[2016-10-10] MEDS ORDERED: TAMS5CAP PO (07:53)
[2016-10-10] MEDS: LISINOPRIL 10 MG TAB PO SCH (07:58)
[2016-10-10] MEDS: PANTOPRAZOLE SOD 20 MG DELAYED RELEASE TAB PO SCH (07:58)
--- NOTE | 2016-10-10 07:58 | PD.ORT.PN ---
Subjective Subjective Remarks His left hip pain continues to improve. He has less discomfort when sitting in the chair versus the bed. The staff tried to remove the ward for a second time and again he retained so the ward was placed again. His urine output is satisfactory. He has no abdominal pain or fever. He is still concerned about d /c home and prefers snf. No other complaints or concerns. No new CP or SOB. Objective Vitals Vital Signs Date Time Temp Pulse Resp B/P Pulse Ox O2 Delivery O2 Flow Rate FiO2 10/10/16 07:30 Room Air 10/10/16 07:30 98.7 80 18 145/68 93 10/10/16 00:05 96.9 75 18 159/72 97 10/09/16 22:23 21 10/09/16 20:05 97.0 75 18 126/60 98 10/09/16 15:30 96.7 71 18 125/59 98 10/09/16 11:55 95.5 69 18 92/52 93 I/O 10/09/16 10/09/16 10/09/16 10/10/16 10/10/16 10/10/16 07:00 15:00 23:00 07:00 15:00 23:00 Intake Total 240 ml 720 ml 240 ml 360 ml Output Total 300 ml 200 ml 800 ml 2300 ml Balance -60 ml 520 ml -560 ml -1940 ml Intake Oral 240 ml 720 ml 240 ml 360 ml Output Urine Total 300 ml 200 ml 800 ml 2300 ml # Voids 0 # Bowel Movements 0 4 1 1 Result Diagram: 10/08/16 0539 Procedures Left total hip arthroplasty, direct anterior approach Objective Remarks Sitting up in chair, NAD VSS LLE Dressing c/d/i, no new drainage, moderate swelling, minimal ecchymosis, no erythema thigh and calf both supple, neg homans +motor at, +sens, +nvi ward cath in place Assessment & Plan Ortho Post Op Day #: 3 Problem List: (1) Left hip pain (2) Osteoarthritis of left hip Assessment and Plan pod#3 s/p L LASHAUN, anterior Ortho stable. Ok to d/c to SNF later today. Continue ward cath for 5-7 days. Continue Flomax 0.4mg for 7 days. Follow up w urology. If not established w urology will consult today before discharge. PO pain meds. Hold dressing changes unless saturated. PT - WBAT LLE. Anterior lashaun precautions. Xarelto 10mg qd. IS encouraged. Ice left hip and thigh. F/U in 2 weeks for scheduled follow up. DME / 3008 written. Felipa Live Oct 10, 2016 07:58
[2016-10-10] MEDS: CARVEDILOL 12.5 MG TAB PO SCH (07:59)
[2016-10-10] MEDS: MAGNESIUM HYDROXIDE SUSP 30 ML CUP PO SCH (07:59)
[2016-10-10] MEDS: SODIUM CHLORIDE 0.9% FLUSH 5 ML FLUSH IVF SCH (07:59)
[2016-10-10] MEDS ORDERED: TAMSULOSIN HCL 0.4 MG CAP PO ONE (08:00)
[2016-10-10] MEDS: oxyCODONE/ACETAMINOPHEN 5 MG/325 MG TAB PO PRN ×2 (10:37→16:04)
[2016-10-10 11:35] VITALS: BP 169/77; PULSE 70; RESP 18; TEMP 96.8; O2SAT 96
[2016-10-10] MEDS: RIVAROXABAN 10 MG TAB PO SCH (13:53)
--- NOTE | 2016-10-10 15:38 | MB ---
cc: CCList DATE OF CONSULTATION: 10/10/2016. REASON FOR CONSULTATION: HISTORY OF PRESENT ILLNESS: This is a pleasant 80-year-old male who recently underwent left hip replacement by Dr. Cortez who developed urinary retention postoperatively. He does admit to a history of benign prostate hypertrophy with obstruction with nocturia two to three times at night prior to his admission. He recently also had laminectomy for degenerative disc disease in the past. He denies any urinary tract infections or gross hematuria and he has occasional constipation. He is currently on pain medications which may contribute to his urinary retention. PAST MEDICAL HISTORY: His medical history includes: 1. Coronary artery disease. 2. Hypertension. 3. Degenerative disc disease. 4. Osteoarthritis of the left hip. PAST SURGICAL HISTORY: 1. Lumbar laminectomy. 2. Left hip surgery. 3. History of bilateral inguinal hernia surgery in the past. SOCIAL HISTORY: He denies smoking or drinking at present or drug use. FAMILY HISTORY: Denies any family history of prostate cancer. REVIEW OF SYSTEMS: Denies any chest pain, shortness of breath, diarrhea, denies any constipation at present. Occasional gait disturbances due to his left hip osteoarthritis. Denies any psychiatric problems. Denies any heat or cold intolerance. Denies any skin lesions. He is not presently depressed. The remaining review of systems were reviewed and are negative. PHYSICAL EXAMINATION: VITAL SIGNS: His present vital signs today are temperature 96.8, heart rate 70, respiratory rate 18, blood pressure 169/77. GENERAL: He is an obese 80-year-old male in no acute distress. HEAD, EYES, EARS, NOSE, THROAT: Normocephalic and atraumatic. Pupils equal, round and reactive to light and accommodation. Extraocular muscles intact. NECK: The neck is supple. HEART: Regular rate and rhythm. LUNGS: Clear. ABDOMEN: The abdomen is soft, nontender and nondistended. : Normal phallus. Dixon catheter in place draining clear urine. EXTREMITIES: 1+ edema. LABORATORY STUDIES: White count 4.3, hemoglobin 11.8, hematocrit 34.1, platelet count of 187,000. Sodium 141, potassium 4.0, chloride 105, carbon dioxide 29.7, BUN of 16, creatinine 0.8, glucose of 157. PT is 11.4, INR 1.0, PTT of 27.1. Urinalysis shows 1 red cell, 1 white cell, nitrites negative as well as leukocyte esterase. ASSESSMENT: This is an 80-year-old male status post left hip replacement with urinary retention postop with history of BPH and lower urinary tract symptoms. I would recommend Flomax 0.4 mg p.o. q.h.s. and continue Dixon drainage for now. The patient to undergo void trial next week on either at the [facility] facility or in the office. Thank you for the consult and for allowing me to participate in the care of this patient. Jay DENT /3:23 PM /3:33 PM
[2016-10-10 15:59] VITALS: BP 126/60; PULSE 80; RESP 18; TEMP 96.5; O2SAT 97
== END 2016-10-10 17:04 | DRG 470 ==
LOC: HSDI 10-07 08:28 → N06B 10-07 19:04
PROVIDERS: ADMIT Orthopaedic Surgery Orthopaedic Surgery of the Spine; ATTEND Orthopaedic Surgery Orthopaedic Surgery of the Spine
PROC: 0SRB02A Replacement of Left Hip Joint with Metal on Polyethylene Synthetic Substitute, Uncemented, Open Approach (ICD-10-PCS; principal; 2016-10-07 11:30)
DX: M16.12 Unilateral primary osteoarthritis, left hip (principal); E66.9 Obesity, unspecified; I10 Essential (primary) hypertension; Z68.35 Body mass index [BMI] 35.0-35.9, adult; R33.9 Retention of urine, unspecified; N40.1 Benign prostatic hyperplasia with lower urinary tract symptoms; R35.1 Nocturia; K21.9 Gastro-esophageal reflux disease without esophagitis; Z87.891 Personal history of nicotine dependence
CPT/HCPCS: 73502; 76000; 85014; 85018; 86850; 86900; 86901; 86920; 94150; C1776; C9290; J0131; J0690; J1580; J2270; J2405; J3010; J3370; J7050; J7120

== ENCOUNTER → 2016-09-26 | Outpatient (CLI) | payer MEDICARE, OTHER ==
[~2016-09-26] MED LIST changes: +ASPI81TA81 PO; +COMMODE 3-IN-11 MIS; +DICL75TA PO; +IRON27TA PO; +OMEP20TA PO; +OXYC1TAB63 PO; +TAMS5CAP PO; +WALKER WHEELS/F1 MIS; +XARE10TA PO
[2016-09-26 12:57] LABS: BASOPHIL % 0.5 % (0.0-2.0); EOSINOPHIL # 0.2 TH/MM3 (0-0.4); EOSINOPHIL % 4.2 % (0.0-4.0); HEMATOCRIT 44.2 % (39.0-51.0); HEMO FLAGS DIFF FINAL; LYMPH % 15.4 % (9.0-44.0); LYMPHOCYTE # 0.7 TH/MM3 (1.0-4.8); MEAN CELL VOLUME 90.2 FL (80.0-100.0); MEAN CORPUSCULAR HEMOGLOBIN 29.5 PG (27.0-34.0); MEAN CORPUSCULAR HGB CONC 32.8 % (32.0-36.0); MONO % 8.8 % (0.0-8.0); NEUT % 71.1 % (16.0-70.0); PLATELET COUNT 187 TH/MM3 (150-450); RED CELL DISTRIBUTION WIDTH 15.5 % (11.6-17.2); WHITE BLOOD COUNT 4.3 TH/MM3 (4.0-11.0)
[2016-09-26 13:01] LABS: BLOOD, URINE NEG (NEG); COMMENT (UR) CULT NOT INDICATED; CULTURE IF INDICATED CULT NOT INDICATED; GLUCOSE,URINE NEG (NEG); KETONE, URINE NEG (NEG); MUCUS URINE FEW /lpf (OCC); NITRITE,URINE NEG (NEG); SQUAMOUS EPITHELIAL CELL URINE <1 /hpf (0-5); URINE COLOR YELLOW (YELLW/STRAW)
[2016-09-26 13:10] LABS: APTT (PATIENT) 27.1 SEC (24.3-30.1); PROTHROMBIN TIME - PATIENT 11.4 SEC (9.8-11.6)
[2016-09-26 13:32] LABS: BICARBONATE 29.7 MEQ/L (21.0-32.0)
== END ==
LOC: CPRE 11:01
PROVIDERS: ATTEND Orthopaedic Surgery Orthopaedic Surgery of the Spine
DX: Z01.810 Encounter for preprocedural cardiovascular examination (principal); Z01.812 Encounter for preprocedural laboratory examination; Z79.01 Long term (current) use of anticoagulants; M16.12 Unilateral primary osteoarthritis, left hip
CPT/HCPCS: 36415; 80048; 81001; 85025; 85610; 85730